=== PATIENT | male | born 1960 | race Hispanic/Latino ===

== ENCOUNTER → 2017-07-07 | Outpatient (CLI) | payer BC | END | disposition home or self-care (01) | LOC: YCFC.O 16:02 | PROVIDERS: ATTEND Nurse Practitioner Family | DX: R50.9 Fever, unspecified (principal) ==

== ENCOUNTER → 2017-07-07 | Outpatient (CLI) | payer BC ==
--- NOTE | 2017-07-07 17:07 | RAD ---
EXAM DESCRIPTION: Chest,2 Views CLINICAL HISTORY: 57 years Male, COUGH COMPARISON: None Available TECHNIQUE: PA/lateral FINDINGS: Cardiomegaly is evident. The lungs are clear. No pleural fluid is seen. Degenerative changes are seen in the thoracic spine. IMPRESSION: Cardiac megaly is observed without evidence of congestive heart failure. No infiltrate is detected. Electronically signed by: Juvenal Valles MD 07/07/2017 5:06 PM [facility]
== END | disposition home or self-care (01) ==
LOC: RAD 16:23
PROVIDERS: ATTEND Nurse Practitioner Family
DX: R05 Cough (principal)

== ENCOUNTER 2017-08-19 13:27 | Emergency (ER) | payer BC ==
[2017-08-19 14:01] VITALS: TEMP 98.8
[2017-08-19] MEDS ORDERED: ORPHENADRINE CITRATE 30 MG/ML AMP IM ONE (14:17)
[2017-08-19] MEDS ORDERED: KETOROLAC TROMETHAMINE INJ 60 MG/2 ML VIAL IM ONE (14:17)
[2017-08-19] MEDS ORDERED: HYDROcodone 10MG/APAP 325MG 1 EA TAB PO ONE (14:18)
--- NOTE | 2017-08-19 14:21 | ED.PDOC ---
History of Present Illness - General Chief Complaint: Back Pain or Injury Stated Complaint: low back/left leg pain Time Seen by Provider: 08/19/17 14:14 Source: patient, family Exam Limitations: no limitations - History of Present Illness Initial Comments: PT PRESENTS TO THE ED WITH COMPLAINT OF LUMBAR PAIN THAT RADIATES DOWN LEFT LEG FOR THE PAST 3 WEEKS AND WORSENING OVER THE PAST FEW DAYS. PT ALSO REPORTS COUGH AND STATES HE HAD CXR DONE 3 WEEKS AGO WHEN IT BEGAN, HOWEVER NOTHING WAS REPORTED BACK TO PATIENT. Timing/Duration: getting worse Quality/Severity: moderate, radiation Back Pain Location: lumbar spine Back Pain Radiation: upper legs Improving Factors: immobilization, medication Worsening Factors: movement Associated Symptoms: lower back pain Allergies/Adverse Reactions: Allergies NO KNOWN ALLERGY Allergy (Verified 07/01/15 15:24) Home Medications: Ambulatory Orders Acetaminophen W/ Codeine [Tylenol W/ CODEINE #3] 1 ea PO Q4HR PRN #24 08/19/17 Cyclobenzaprine HCl [Flexeril] 10 mg PO Q6HR PRN #20 tab 08/19/17 Ibuprofen 800 mg PO Q8HR PRN #30 tab 08/19/17 Review of Systems - Review of Systems Constitutional: Denies: chills, fever EENTM: Denies: nose congestion, throat pain Respiratory: States: see HPI, cough, short of breath Cardiology: Denies: chest pain, palpitations Gastrointestinal/Abdominal: Denies: nausea, vomiting Genitourinary: Denies: dysuria, frequency Musculoskeletal: Denies: joint pain, joint swelling Skin: Denies: dryness, lesions Neurological: Denies: headache, numbness, paresthesia Past Medical History (General) - Patient Medical History Hx Seizures: No Hx Stroke: No Hx Dementia: No Hx Asthma: No Hx of COPD: No Hx Cardiac Disorders: No Hx Congestive Heart Failure: No Hx Pacemaker: No Hx Hypertension: Yes Hx Thyroid Disease: No Hx Diabetes: No Hx Gastroesophageal Reflux: No Hx Renal Disease: No Surgical History: cholecystectomy - Vaccination History Hx Influenza Vaccination: No - Social History Hx Tobacco Use: No Family Medical History - Family History Mother Family History: No Known Physical Exam - Physical Exam General Appearance: Alert, Obvious distress, Well Developed, Well Groomed, Well Hydrated Eyes, Ears, Nose, Throat Exam: normal ENT inspection Neck Exam: normal inspection Cardiovascular/Respiratory: regular rate, rhythm, no M/R/G, normal breath sounds , no respiratory distress Gastrointestinal/Abdominal: non tender, soft Back Exam: other - DIFFUSE LUMBAR TENDERNESS, NEGATIVE STRAIGHT LEG RAISE BILATERALLY Extremity Exam: no evidence of injury Neurologic: alert, normal mood/affect, oriented x 3 Skin Exam: normal color, warm/dry Progress - Progress Progress: 08/19/17 15:40 PT REPORTS SIGNIFICANT IMPROVEMENT IN SYMPTOMS AFTER TORADOL, NORFLEX AND NORCO. XRAY FINDINGS DISCUSSED. - EKG/XRAY/CT XRAY: lumbar, degenerative dz - no acute findings Departure - Departure Clinical Impression: Sciatica, Degeneration of lumbosacral intervertebral disc, Cough Time of Disposition: 15:41 Disposition: Discharge to Home or Self Care Condition: Good Departure Forms: ED Discharge - Pt. Copy, Patient Portal Self Enrollment Instructions: DI for Back Pain With Sciatica Activity: increase activity as tolerated, no exercise, no lifting, walking as tolerated Referrals: Kindra Salvador, FITNESS LEADER [Primary Care Provider] - 1-5 Days Prescriptions: Acetaminophen W/ Codeine [Tylenol W/ CODEINE #3] 1 ea PO Q4HR PRN #24 PRN Reason: Pain Cyclobenzaprine HCl [Flexeril] 10 mg PO Q6HR PRN #20 tab PRN Reason: Muscle Spasms Ibuprofen 800 mg PO Q8HR PRN #30 tab PRN Reason: Pain Home Medications: Ambulatory Orders Acetaminophen W/ Codeine [Tylenol W/ CODEINE #3] 1 ea PO Q4HR PRN #24 08/19/17 Cyclobenzaprine HCl [Flexeril] 10 mg PO Q6HR PRN #20 tab 08/19/17 Ibuprofen 800 mg PO Q8HR PRN #30 tab 08/19/17 Additional Instructions: MAY RETURN TO WORK ON TUESDAY
--- NOTE | 2017-08-19 15:02 | RAD ---
EXAM DESCRIPTION: Lumbar Spine 3 Views CLINICAL HISTORY: BACK PAIN COMPARISON: None FINDINGS: 3 views of the lumbar spine. Lumbar lordosis is relatively well-maintained. Advanced facet arthritis L4-5 contributes to a grade 1 anterolisthesis measuring roughly 0.7 cm. No acute fracture the lumbar spine is demonstrated. Multilevel disc height loss with endplate sclerosis indicating multilevel disc disease. 5 lumbar type vertebral bodies are present Large marginal osteophyte formations can be seen with diffuse idiopathic skeletal hyperostosis. No SI joint pathology is seen to suggest a seronegative spondyloarthropathy. IMPRESSION: Degenerative grade 1 anterolisthesis L4 and L5. Multilevel disc disease is likely. No acute osseous pathology. Electronically signed by: Guilherme Morrison MD 08/19/2017 3:01 PM [facility]
--- NOTE | 2017-08-19 15:03 | RAD ---
EXAM DESCRIPTION: Chest,1 View CLINICAL HISTORY: COUGH COMPARISON: July 07, 2017. FINDINGS: Portable frontal view the thorax. No consolidation, effusion or pneumothorax is demonstrated. Heart size upper limits of normal. No acute osseous pathology. IMPRESSION: Negative portable chest. Electronically signed by: Guilherme Morrison MD 08/19/2017 3:02 PM [facility]
[2017-08-19 15:59] VITALS: BP 172/72; O2SAT 92
== END 2017-08-19 16:00 | disposition home or self-care (01) ==
LOC: ER 13:27
DX: M51.17 Intervertebral disc disorders with radiculopathy, lumbosacral region (principal); R05 Cough; I10 Essential (primary) hypertension
CPT/HCPCS: 71045; 72100; J1885; J2360

== ENCOUNTER → 2017-09-10 | Outpatient (CLI) | payer BC | LOC: LAB.O 09:04 | PROVIDERS: ATTEND Nurse Practitioner Family | DX: R06.02 Shortness of breath (principal); R93.8 Abnormal findings on diagnostic imaging of other specified body structures; I10 Essential (primary) hypertension; R73.01 Impaired fasting glucose; Z13.220 Encounter for screening for lipoid disorders ==

== ENCOUNTER 2017-12-25 07:35 | Observation (INO) | payer BC, OTHER ==
[2017-12-25] MEDS ORDERED: SODIUM CHLORIDE 0.9% 1000ML 1,000 ML IVS ONE (07:50)
[2017-12-25] MEDS ORDERED: PROMETHAZINE HCL INJ 25 MG in SODIUM CHLORIDE 0.9% 50ML 50 ML IVPB ONE (08:17)
[2017-12-25] MEDS ORDERED: ALUM & MAG HYDROX-SIMETHICONE 30 ML, LIDOCAINE VISCOUS 2% 15 ML PO ONE ×2 (08:18)
[2017-12-25] MEDS ORDERED: POTASSIUM CHLORIDE ELIXIR 20 MEQ/15 ML UD PO ONE (08:18)
[2017-12-25] MEDS ORDERED: LIDOCAINE HCL 2% (MOUTH-THROAT) 15 ML UD ONE (08:19)
[2017-12-25] MEDS ORDERED: ALUM & MAG HYDROX-SIMETHICONE 30 ML UD ONE (08:19)
[2017-12-25] MEDS ORDERED: PROMETHAZINE HCL INJ 25 MG/ML VIAL ONE (08:19)
[2017-12-25] MEDS ORDERED: SODIUM CHLORIDE 0.9% 50ML 50 ML ONE (08:20)
--- NOTE | 2017-12-25 08:25 | RAD ---
Acute abdominal series on 12/25/2017 CLINICAL INDICATION: Nausea and vomiting and diarrhea COMPARISON: Chest x-ray from 08/19/2017 FINDINGS: CHEST: Heart is borderline in size. Hilar and mediastinal contours are within normal limits. The lungs are clear. Pulmonary vascularity is within normal limits. ABDOMEN: There is no free air. Bowel gas pattern is nonspecific. No abnormal calcification or mass effect is noted. Degenerative changes are noted in the spine. IMPRESSION: 1. No acute cardiopulmonary disease. 2. Nonspecific abdomen. Electronically signed by: Carmine Whitt 12/25/2017 8:24 AM CDT
--- NOTE | 2017-12-25 09:01 | ED.PDOC ---
History of Present Illness - General Chief Complaint: GI Problem Stated Complaint: abdominal pain; n/v/d Time Seen by Provider: 12/25/17 07:49 Source: patient Exam Limitations: no limitations - History of Present Illness Initial Comments: the patient is a 57-year-old male presenting to the emergency room secondary to 3 days of nausea and vomiting and diarrhea. No blood in either. No history of any pancreatitis. The patient has had his gallbladder taken out years ago. No fever. No history of any diabetes. No history of any chronic hepatitis. No history of any chronic renal failure. He does take Coreg along with lisinopril and hydrochlorothiazide for hypertension. Of note the patient is significantly orthostatic here, in fact he is too dizzy to sit up or stand up for tilt vital signs initially. Initial systolic blood pressures when supine are right around 100. he has had a mild sore throat.he and his deny any recent antibiotic use. His is used to interpret, though the patient does speak some Malagasy and I do speak some Cameroonian. Severity: moderate Improving Factors: nothing Worsening Factors: movement Associated Symptoms: headaches, loss of appetite, malaise, weakness Allergies/Adverse Reactions: Allergies NO KNOWN ALLERGY Allergy (Verified 07/01/15 15:24) Home Medications: Ambulatory Orders Ibuprofen 800 mg PO Q8HR PRN #30 tab 08/19/17 Carvedilol [Carvedilol] 25 mg BEDTIME 12/25/17 Lisinopril & Hydrochlorothiazi [Lisinopril/Hctz 20-25 mg] 1 tab PO BEDTIME 12/25 Omeprazole [Prilosec Cap] 20 mg PO BEDTIME 12/25/17 Review of Systems - Review of Systems Constitutional: States: malaise, weakness EENTM: States: throat pain Respiratory: States: no symptoms reported Cardiology: States: no symptoms reported Gastrointestinal/Abdominal: States: abdominal pain, diarrhea, nausea, vomiting Genitourinary: States: no symptoms reported Musculoskeletal: States: other - mild generalized body aches Skin: States: no symptoms reported Neurological: States: no symptoms reported Endocrine: States: no symptoms reported Hematologic/Lymphatic: States: no symptoms reported All other Systems: No Change from Baseline Past Medical History (General) - Patient Medical History Hx Seizures: No Hx Stroke: No Hx Dementia: No Hx Asthma: No Hx of COPD: No Hx Cardiac Disorders: No Hx Congestive Heart Failure: No Hx Pacemaker: No Hx Hypertension: Yes Hx Thyroid Disease: No Hx Diabetes: No Hx Gastroesophageal Reflux: No Hx Renal Disease: No - Vaccination History Hx Influenza Vaccination: No - Social History Hx Tobacco Use: No Family Medical History - Family History Mother Family History: No Known Physical Exam - Physical Exam General Appearance: Alert, Ill Appearing Eye Exam: bilateral normal Ears, Nose, Throat: hearing grossly normal, pharyngeal erythema Neck: full range of motion, supple Respiratory: lungs clear, normal breath sounds, no respiratory distress, no accessory muscle use Cardiovascular/Chest: normal peripheral pulses, no edema, bradycardia - on Coreg Peripheral Pulses: radial,right: 2+, radial,left: 2+, dorsalis pedis,right: 2+, dorsalis pedis,left: 2+ Gastrointestinal/Abdominal: soft, other - periumbilical discomfort palpation but no palpable mass and no rebound or peritoneal signs Rectal Exam: deferred Back Exam: normal inspection, no CVA tenderness, no vertebral tenderness Extremity: normal range of motion, non-tender, normal inspection, no pedal edema , normal capillary refill Neurologic: campaign marketing manager II-XII nml as tested, alert, oriented x 3 DTR: 2+: Patellar, left, Patellar, right Skin Exam: normal color Comments: Vital Signs - 24 hr 12/25/17 12/25/17 07:45 08:35 Temperature 96.7 F L Pulse Rate [ 51 L 53 L left brachial] Respiratory 16 16 Rate Blood Pressure 101/50 103/53 [left brachial] O2 Sat by Pulse 97 97 Oximetry again tilt vital signs were not taken as the patient is too dizzy to even really sit up. he does take Coreg additionally Progress - Progress Progress: 12/25/17 09:05 the patient is a 57-year-old male presenting to the emergency room secondary to nausea and vomiting and diarrhea of 3 days' duration. While this is most likely due to a viral gastroenteritis other possible sources do exist. If diarrhea persists, then stool studies including C. difficile may be warranted. No antibiotics are warranted at this time. He does have significant dehydration with very significant clinical orthostasis and acute renal failure. He is receiving his first liter of IV fluids currently. A strep test is being performed to make sure he does not have strep throat which could of course give a post streptococcal glomerulonephritis contributing to the renal failure. Additionally he does have some resultant hypokalemia, likely from the nausea and vomiting and diarrhea but also contributed to by the hydrochlorothiazide in his blood pressure pills. He is receiving his first dose of oral potassium supplementation and this will need to of course be followed. His Coreg needs to be held at this time and the hydrochlorothiazide discontinued. He also should likely have his lisinopril discontinued at least until he is better hydrated and not symptomatically orthostatic. Urinalysis is still pending along with a strep throat test. Admitted for care for above issues. Anticipate a 3-5 day hospital stay for correction of renal complications. - Results/Orders Results/Orders: 12/25/17 07:50 UA [URINALYSIS] Stat 12/25/17 09:01 GROUP A STREP SCREEN, RAPID Stat Laboratory Results - last 24 hr 12/25/17 12/25/17 12/25/17 08:03 08:03 08:03 WBC 7.1 RBC 5.13 Hgb 15.2 Hct 43.6 MCV 85.0 MCH 29.7 MCHC 34.9 RDW 13.4 Plt Count 136 MPV 9.7 Absolute Neuts (auto) 4.20 Absolute Lymphs (auto) 1.80 Absolute Monos (auto) 0.90 H Absolute Eos (auto) 0.20 Absolute Basos (auto) 0.00 Neutrophils % 59.2 Lymphocytes % 25.3 Monocytes % 12.6 H Eosinophils % 2.2 Basophils % 0.7 Sodium 132 L Potassium 2.9 L Chloride 98 L Carbon Dioxide 23 Anion Gap 13.9 BUN 54 H Creatinine 3.69 H BUN/Creatinine Ratio 14.6 Random Glucose 168 H Serum Osmolality 283.1 Lactic Acid 0.9 Calcium 8.3 L Magnesium 2.4 Total Bilirubin 1.1 H AST 68 H ALT 65 H Alkaline Phosphatase 95 Creatine Kinase 150 CK-MB (CK-2) 3.3 CK-MB (CK-2) % Not Reportable Troponin I 0.03 Serum Total Protein 7.7 Albumin 4.4 Globulin 3.3 Albumin/Globulin Ratio 1.3 Amylase 57 Lipase 33 urinalysis and rapid strep were still pending. Acute abdominal series fails to show any definitive acute pathology. Departure - Departure Clinical Impression: Hypokalemia, Orthostasis, Dehydration, Gastroenteritis and colitis, viral Acute renal failure Qualifiers: Acute renal failure type: unspecified Qualified Code(s): N17.9 - Acute kidney failure, unspecified Disposition: Admit Patient Referrals: Kindra Salvador, [employer] SP[employer]NER [Primary Care Provider] - 1-2 Weeks Home Medications: Ambulatory Orders Ibuprofen 800 mg PO Q8HR PRN #30 tab 08/19/17 Carvedilol [Carvedilol] 25 mg BEDTIME 12/25/17 Lisinopril & Hydrochlorothiazi [Lisinopril/Hctz 20-25 mg] 1 tab PO BEDTIME 12/25 Omeprazole [Prilosec Cap] 20 mg PO BEDTIME 12/25/17 Decision To Admit - Decistion To Admit Decision to Admit Reason: Medical Nature Decision to Admit Date: 12/25/17 Decision to Admit Time: 09:11
--- NOTE | 2017-12-25 09:21 | HP ---
SUPERVISING PHYSICIAN: Dave Brunson MD CHIEF COMPLAINT: Nausea, vomiting, diarrhea. HISTORY OF PRESENT ILLNESS: This is a 57 year-old male pt who came into the Emergency Room secondary to a 3-day history of nausea and vomiting with development of diarrhea as well. He states that basically he went to work on Tuesday. He does not usually eat breakfast so throughout the day he developed the nausea and vomiting. He was working outside and got really, really hot on Tuesday. He came home basically drenched in sweat his stated. Since that time he had the nausea and vomiting. The vomiting basically ended yesterday but then he developed some diarrhea. He has not felt very well. Therefore, he came to the Emergency Room this morning. In the Emergency Room his workup included abdominal film which was basically negative. His chemiatry showed an electrolytes imbalance with hyponatremia at 132, hypokalemia at 2.9 and elevated BUN and creatinine of 54 and 3.69 respectively. He did have some transaminitis, AST of 68 and ALT of 65 and his bilirubin was 1.1. His CBC was unremarkable but due to these findings he was referred for admission. At the time of examination, the patient was alert and oriented. He did not speak very good Swedish but his is at the bedside and interpreting. He did not really have a whole tenderness to palpation at this time. His abdomen is soft and he has positive bowel sounds. PAST MEDICAL HISTORY: 1. Hypertension. 2. Heart murmur. 3. Gastroesophageal reflux disease. PAST SURGICAL HISTORY: 1. Open cholecystectomy. CURRENT MEDICATIONS: 1. Carvedilol. 2. Ibuprofen. 3. Lisinopril with HCTZ. 4. Omeprazole. ALLERGIES: NO KNOWN DRUG ALLERGIES. FAMILY HISTORY: Reviewed and noncontributory to the current illness. SOCIAL HISTORY: The patient does not drink alcohol, no illicit drugs and a nonsmoker. He is . He works outdoors most of the time. REVIEW OF SYSTEMS: GENERAL: No fever or chills. No recent weight loss or weight gain but positive for malaise. HEENT: No distal aspects, vision changes, ear pain, nasal congestion or throat pain. RESPIRATORY: No cough, hemoptysis or pleuritic chest pain. CARDIOVASCULAR: No chest pain, palpitations or peripheral edema. GI: Positive for nausea and vomiting, diarrhea, no constipation. Some mild abdominal discomfort. : No dysuria, frequency or flank pain. HEMATOLOGIC: No easy bruising or transfusion reaction. ENDOCRINE: No polydipsia, polyuria or polyphagia. No heat or cold intolerance. MUSCULOSKELETAL: Positive for some back pain but no muscle cramps or joint swelling. NEUROLOGIC: No syncope, no paresthesias, no seizures. INTEGUMENT: No rashes, lesions or wounds. PHYSICAL EXAMINATION: VITAL SIGNS: Blood pressure 102/46, heart rate 50, respiratory rate 14, temperature 98.0. Oxygen saturation 95%. GENERAL: Mr. Batista is a 57 year-old male patient in no acute distress at this time. HEENT: Head normocephalic and atraumatic. Eyes: Pupils are equal and reactive. Nose: no drainage but rather dry mucosa. NECK: Supple, midline trachea, no jugular venous distention. CHEST: Symmetrical with equal rise and fall of the chest with inspiration and expiration. Lung sounds are clear to auscultation bilaterally. CARDIOVASCULAR: Regular rate and rhythm which is bradycardic. Normal S1-S2 but he does have a systolic murmur best heard on the right at the second intercostal space. ABDOMEN: Soft, positive bowel sounds. No tenderness to palpation. No organomegaly. : Exam deferred. EXTREMITIES: Lower extremities with no edema, 2+ pulse, capillary refill less than 2 second. NEUROLOGIC: The patient is alert and oriented, moves all extremities. Extraocular movements are intact. LABORATORY: As discussed in the history of present illness. ASSESSMENT: 1. Acute renal failure. electrolyte imbalance. 2. Possible gastroenteritis. 3. Likely heat exhaustion. 4. History of hypertension with a marginal blood pressure currently. 5. History of a cardiac murmur. PLAN: At this time, the patient will be aggressively resuscitated. I am going to utilize some lactated ringers as he already got normal saline in the Emergency Room along with a potassium tablet. I will put him on some clear liquids for now and give him Zofran p.r.n., however, at this point, he is not nauseated. I fell like given his lab results with a normal CBC, that there is a possibility this is a viral gastroenteritis but more likely this is the result of a severe heat exhaustion for which he did not recover and was inadequately taking p.o. fluids at home. Will hold all his home medications for now and probably discontinue his HCTZ once he leaves here and he can followup with Dariela Salvador NP, his primary care provider. I am going to utilize DVT GI ulcer prophylaxis here as well. I am going to recheck his chemistry about 1800 today and adjust his IV fluids as needed. #[id number] [facility]
[2017-12-25] MEDS ORDERED: SODIUM CHLORIDE 0.9% (FLUSH) 10 ML SYG IV PRN (10:34)
[2017-12-25] MEDS ORDERED: ONDANSETRON INJ 4 MG/2 ML VIAL IV PRN (10:34)
[2017-12-25] MEDS ORDERED: PANTOPRAZOLE SODIUM IV 40 MG VIAL IV ONE (10:52)
[2017-12-25] MEDS ORDERED: IV SET AND CAP CHANGE INJ INJ SCH (11:00)
[2017-12-25] MEDS: LACTATED RINGERS 1,000 ML IVS PRN ×2 (11:15→18:36)
[2017-12-25] MEDS: ENOXAPARIN SODIUM 30 MG/0.3 ML SYG SUBCU SCH (11:50)
[2017-12-25] MEDS ORDERED: LACTATED RINGERS 1,000 ML IVS ONE (16:50)
[2017-12-26] MEDS: LACTATED RINGERS 1,000 ML IVS PRN ×2 (00:52→07:58)
[2017-12-26] MEDS ORDERED: POTASSIUM CHLORIDE 20 MEQ TAB PO ONE (08:29)
[2017-12-26] MEDS: ENOXAPARIN SODIUM 30 MG/0.3 ML SYG SUBCU SCH (09:20)
[2017-12-26] MEDS ORDERED: CYCLOBENZAPRINE HCL 10 MG TAB PO PRN (09:36)
[2017-12-26] MEDS ORDERED: CARVEDILOL 12.5 MG TAB PO SCH (09:45)
[2017-12-26] MEDS ORDERED: LISINOPRIL 10 MG TAB PO SCH (10:00)
[2017-12-26] MEDS ORDERED: CARVEDILOL 12.5 MG TAB ONE (10:02)
[2017-12-26 15:08] VITALS: BP 134/54; TEMP 98.1; O2SAT 97
--- NOTE | 2017-12-26 15:31 | DS ---
SUPERVISING PHYSICIAN: Dave Brunson MD ADMISSION DIAGNOSIS: 1. Acute renal failure. 2. Electrolyte imbalance. 3. Possible gastroenteritis. 4. Likely heat exhaustion. 5. History of hypertension. 6. History of a cardiac murmur. DISCHARGE DIAGNOSIS: 1. Acute renal failure. 2. Electrolyte imbalance. 3. Possible gastroenteritis. 4. Likely heat exhaustion. 5. History of hypertension. 6. History of a cardiac murmur. HISTORY OF PRESENT ILLNESS: This is a 57 year-old male patient who came into the Emergency Room secondary to a 3-day history of nausea and vomiting with development of diarrhea as well. He states that basically he went to work on Tuesday. He does not usually eat breakfast so throughout the day he developed the nausea and vomiting. He was working outside and got really, really hot on Tuesday. He came home basically drenched in sweat his stated. Since that time he had the nausea and vomiting. The vomiting basically ended yesterday but then he developed some diarrhea. He has not felt very well. Therefore, he came to the Emergency Room this morning. In the Emergency Room his workup included abdominal film which was basically negative. His chemistry showed an electrolytes imbalance with hyponatremia at 132, hypokalemia at 2.9 and elevated BUN and creatinine of 54 and 3.69 respectively. He did have some transaminitis, AST of 68 and ALT of 65 and his bilirubin was 1.1. His CBC was unremarkable but due to these findings he was referred for admission. At the time of examination, the patient was alert and oriented. He did not speak very good Bel[place]ian but his is at the bedside and interpreting. He did not really have a whole lot tenderness to palpation at this time. His abdomen is soft and he has positive bowel sounds. His repeat chemistry at 1800 yesterday showed an improvement in his BUN and creatinine and once again this morning, it showed a normalization of his creatinine with still elevated BUN. However, we advanced his diet and he tolerated that without any difficulties. We finished a bag of lactated ringers and gave him potassium supplementation. This afternoon, he wishes to go home, so we will discharge home in stable condition. He has been instructed to not take lisinopril with HCTZ. I have written for lisinopril 20 mg to be taken daily. He can followup with Kindra Salvador, Nurse Practitioner. I have instructed him also to not work out in the heat for the rest of this week. He can discuss with her when to return to work. Once again , I do feel like this is due to heat exhaustion and not a viral gastroenteritis. #[id number] [facility]
[2017-12-26] MEDS ORDERED: OMEPRAZOLE CAP 20 MG CAP PO SCH (21:00)
== END 2017-12-26 16:15 | disposition home or self-care (01) ==
LOC: ER 07:35 → OBSVTOIN 09:19 → UNDOADMOB 09:19 → INTOOBSV 09:19 → MS 09:19
PROVIDERS: ADMIT Nurse Practitioner; ATTEND Nurse Practitioner
DX: N17.9 Acute kidney failure, unspecified (principal); E87.8 Other disorders of electrolyte and fluid balance, not elsewhere classified; E87.1 Hypo-osmolality and hyponatremia; E87.6 Hypokalemia; E86.0 Dehydration; R79.89 Other specified abnormal findings of blood chemistry; R11.2 Nausea with vomiting, unspecified; R19.7 Diarrhea, unspecified; I10 Essential (primary) hypertension; R01.1 Cardiac murmur, unspecified; K21.9 Gastro-esophageal reflux disease without esophagitis; Z79.899 Other long term (current) drug therapy; Z90.49 Acquired absence of other specified parts of digestive tract
CPT/HCPCS: 96361 ×2; 96372 ×2; 96375; J1650 ×2; J2550; J7030; A4216; J7120 ×5; 80048; 82553; 80053 ×2; 36415 ×2; 82150; 81001; 85025 ×2; 82550; 83690; 83735 ×2; 84484; 83605; 74019; 99285; 93005; 96365

== ENCOUNTER 2018-05-05 18:42 | Emergency (ER) | payer BC, OTHER ==
[2018-05-05] MEDS ORDERED: SODIUM CHLORIDE 0.9% 1000ML 1,000 ML IVS ONE (18:45)
[2018-05-05] MEDS ORDERED: ASPIRIN TABLET 325 MG TAB PO ONE (18:48)
[2018-05-05] MEDS ORDERED: NITROGLYCERIN 0.4 MG 25 EA TAB SL ONE (18:48)
[2018-05-05] MEDS ORDERED: SODIUM CHLORIDE 0.9% (FLUSH) 10 ML SYG IV PRN (18:48)
[2018-05-05] MEDS ORDERED: ONDANSETRON INJ 4 MG/2 ML VIAL IV ONE (18:48)
[2018-05-05] MEDS ORDERED: MIDAZOLAM INJ 5 MG/5 ML VIAL ONE (18:52)
--- NOTE | 2018-05-05 19:10 | ED.PDOC ---
History of Present Illness - General Chief Complaint: Cardiac Respiratory Arrest Stated Complaint: unresponsive Time Seen by Provider: 05/05/18 19:03 Source: RN notes reviewed, Vital Signs reviewed, family Exam Limitations: clinical condition, other - unresponsive - History of Present Illness Initial Comments: Brandon Batista 58 y/o male brought by POV after he passed out at his sons house unresponsive,and initial exam felt no pulse ,no respiratory effort,frothing around his mouth and was then suctione,chest compression started ,bagged ,IO inserted,as well as placing monitor leads .He was given a dose Epinephrine 1 mg. iv and et tube placed. Timing/Duration: 1/2 hour Severity: severe Prior Chest Pain/Cardiac Workup: no prior chest pain Allergies/Adverse Reactions: Allergies NO KNOWN ALLERGY Allergy (Verified 07/01/15 15:24) Home Medications: Ambulatory Orders Ibuprofen 800 mg PO Q8HR PRN #30 tab 08/19/17 Carvedilol 25 mg BID 12/25/17 Cyclobenzaprine HCl [Flexeril] 10 mg PO BEDTIME PRN 12/25/17 Omeprazole [Prilosec Cap] 20 mg PO BEDTIME 12/25/17 Lisinopril 20 mg PO DAILY 30 Days #30 tab 12/26/17 Lisinopril [Prinivil] 20 mg PO DAILY tab 12/26/17 Review of Systems - Review of Systems Unable to Obtain Due To: condition, other - unresponsive Past Medical History (General) - Patient Medical History Hx Seizures: No Hx Stroke: No Hx Dementia: No Hx Asthma: No Hx of COPD: No Hx Cardiac Disorders: No Hx Congestive Heart Failure: No Hx Pacemaker: No Hx Hypertension: Yes Hx Thyroid Disease: No Hx Diabetes: No Hx Gastroesophageal Reflux: No Hx Renal Disease: No Hx MRSA: No - Vaccination History Hx Influenza Vaccination: No - Social History Hx Tobacco Use: No Hx Alcohol Use: No Hx Substance Use: No Hx Physical Abuse: No Hx Emotional Abuse: No Family Medical History - Family History Mother Family History: No Known Living Status: Still Living Hx Family Asthma: No Hx Family Congestive Heart Failure: No Hx Family Hypertension: No Hx Family Stroke: No Hx Cardiac Disease: No Hx Family Diabetes: No Hx Family Cancer: No Physical Exam - Physical Exam General Appearance: Other - unresponsive Eyes, Ears, Nose, Throat Exam: other - slightly reactive pupil,frothy saliva coming out from mouth Neck: normal inspection Respiratory: rales, other - not br Cardiovascular/Chest: bradycardia Peripheral Pulses: radial,right: 0, radial,left: 0 Gastrointestinal/Abdominal: soft, no pulsatile mass Extremity: no pedal edema Neurologic: other - unresponsive Skin Exam: normal color, warm/dry Progress - EKG/XRAY/CT EKG: Sinus, no ST T wave changes Comments: HR-97 Procedures - Intubation Time of Intubation: 19:05 Intubation Method: orotracheal Tube Size (cm): 7.5 Breath Sounds after Intubation: equal Intubation Complications: no complications Post Intubation Xray: Yes Departure - Departure Clinical Impression: Cardiac arrest with successful resuscitation, Unresponsive Time of Disposition: 19:15 Disposition: Transfer to Hospital Condition: Serious Departure Forms: ED Discharge - Pt. Copy, Patient Portal Self Enrollment Referrals: Kindra Salvador, RN INTERNATIONAL [Primary Care Provider] - 1-2 Weeks Home Medications: Ambulatory Orders Ibuprofen 800 mg PO Q8HR PRN #30 tab 08/19/17 Carvedilol 25 mg BID 12/25/17 Cyclobenzaprine HCl [Flexeril] 10 mg PO BEDTIME PRN 12/25/17 Omeprazole [Prilosec Cap] 20 mg PO BEDTIME 12/25/17 Lisinopril 20 mg PO DAILY 30 Days #30 tab 12/26/17 Lisinopril [Prinivil] 20 mg PO DAILY tab 12/26/17 Transfer to Outside Facility - Transfer Information Accepting Provider:: Dr. Ravin Noguera Accepting Facility: [facility] Reason for Transfer: ICU
--- NOTE | 2018-05-05 19:17 | RAD ---
EXAM: Chest,1 View CLINICAL INDICATION: 58-year-old male with cardiac arrest. TECHNIQUE: Single view, AP portable chest was obtained. COMPARISON: 08/19/2017. FINDINGS: Stable enlarged cardiac and mediastinal silhouette. Cardiomegaly with tortuous thoracic aorta. Low lung volumes with hemidiaphragms elevation of the RIGHT. Diffuse interstitial and airspace opacification compatible with edema. No gross pneumothoraces or large pleural effusion. Endotracheal tube terminates approximately 2.3 cm above the level of the fawn. Feeding tube is identified coiled within a distended stomach. The tip appears to course of retrograde and is not visualized beyond the level of the gastroesophageal junction. Repositioning is recommended. The visualized bones are within normal limits. IMPRESSION: 1. Cardiomegaly and diffuse interstitial and airspace opacification concerning edema. 2. Atypical positioning of the feeding tube as detailed above. Repositioning is recommended. Electronically signed by: Crista Titus MD 05/05/2018 7:16 PM TYPING BOOKKEEPER
[2018-05-05 20:05] VITALS: BP 153/84; TEMP 99.2; O2SAT 90
[2018-05-05] MEDS ORDERED: MIDAZOLAM INJ 5 MG/5 ML VIAL IV ONE (20:46)
[2018-05-05] MEDS ORDERED: VECURONIUM BROMIDE 10 MG VIAL IV ONE (20:47)
[2018-05-05] MEDS ORDERED: EPINEPHrine INJ 0.1 MG/ML 10 ML SYG IV ONE (20:47)
[2018-05-05] MEDS ORDERED: NITROGLYCERIN/D5W IV 50,000 MCG in PREMIX BOTTLE 1 BOTTLE IVS SCH (21:00)
== END 2018-05-05 20:15 | disposition short-term general hospital (02) ==
LOC: ER 18:42
DX: I46.9 Cardiac arrest, cause unspecified (principal); R41.82 Altered mental status, unspecified; I10 Essential (primary) hypertension
CPT/HCPCS: 36415; 36600; 71045; 80048; 80076; 82550; 82553; 82803; 82805; 83735; 83880; 84484; 85025; 85610; 85730; 92950; 93005; 94002; 94770; J2250; J7030

== ENCOUNTER 2018-07-03 19:32 | Emergency (ER) | payer BC ==
[2018-07-03] MEDS ORDERED: cefTRIAXone SODIUM 1 GM VIAL IM ONE (19:53)
[2018-07-03] MEDS ORDERED: predniSONE 20 MG TAB PO ONE (19:53)
[2018-07-03] MEDS ORDERED: AMOXICILLIN & POT CLAVULANATE 875 MG TAB PO ONE (19:53)
[2018-07-03] MEDS ORDERED: HYDROcodone 5MG/APAP 325MG 1 EA TAB PO ONE (19:54)
[2018-07-03] MEDS ORDERED: cloNIDine HCL 0.1 MG TAB PO ONE (20:03)
--- NOTE | 2018-07-03 20:06 | ED.PDOC ---
History of Present Illness - General Chief Complaint: Dental/Mouth Stated Complaint: upper mouth/.tooth pain Time Seen by Provider: 07/03/18 19:53 Source: patient Exam Limitations: no limitations - History of Present Illness Initial Comments: The patient is a 58-year-old male presenting to the emergency room secondary to infected dental caries and swelling of his upper lip. The swelling of the lip started about 5 or 6 hours ago with pain extending up to the base of his nose. He has multiple dental caries and all of his incisors of the maxilla. He has been hurting significantly all day long. His blood pressure is significantly elevated here but he is otherwise asymptomatic from it. No chest pain or shortness of breath. Timing/Duration: unsure Severity: moderate Improving Factors: nothing Worsening Factors: nothing Associated Symptoms: denies symptoms Allergies/Adverse Reactions: Allergies NO KNOWN ALLERGY Allergy (Verified 07/01/15 15:24) Home Medications: Ambulatory Orders Ibuprofen 800 mg PO Q8HR PRN #30 tab 08/19/17 Carvedilol 25 mg BID 12/25/17 Cyclobenzaprine HCl [Flexeril] 10 mg PO BEDTIME PRN 12/25/17 Omeprazole [Prilosec Cap] 20 mg PO BEDTIME 12/25/17 Lisinopril 20 mg PO DAILY 30 Days #30 tab 12/26/17 Lisinopril [Prinivil] 20 mg PO DAILY tab 12/26/17 Amlodipine Besylate 5 mg PO DAILY #20 tab 07/03/18 Amoxicillin & Pot Clavulanate [Augmentin Tab] 875 mg PO BID #14 tab 07/03/18 Tramadol HCl 50 mg PO Q8HR PRN #20 tab 07/03/18 Review of Systems - Review of Systems Constitutional: States: no symptoms reported EENTM: States: see HPI Respiratory: States: no symptoms reported Cardiology: States: no symptoms reported Gastrointestinal/Abdominal: States: no symptoms reported Genitourinary: States: no symptoms reported Musculoskeletal: States: no symptoms reported Skin: States: no symptoms reported Neurological: States: no symptoms reported Endocrine: States: no symptoms reported Hematologic/Lymphatic: States: no symptoms reported All other Systems: No Change from Baseline Past Medical History (General) - Patient Medical History Hx Seizures: No Hx Stroke: No Hx Dementia: No Hx Asthma: No Hx of COPD: No Hx Cardiac Disorders: Yes Hx Congestive Heart Failure: No Hx Pacemaker: No Hx Hypertension: Yes Hx Thyroid Disease: No Hx Diabetes: No Hx Gastroesophageal Reflux: No Hx Renal Disease: No Hx MRSA: No Surgical History: cholecystectomy - Vaccination History Hx Influenza Vaccination: Yes - Social History Hx Tobacco Use: No Hx Alcohol Use: No Hx Substance Use: No Hx Physical Abuse: No Hx Emotional Abuse: No Family Medical History - Family History Mother Family History: No Known Living Status: Still Living Hx Family Asthma: No Hx Family Congestive Heart Failure: No Hx Family Hypertension: No Hx Family Stroke: No Hx Cardiac Disease: No Hx Family Diabetes: No Hx Family Cancer: No Physical Exam - Physical Exam General Appearance: Alert, Comfortable, No apparent distress Eye Exam: bilateral normal Ears, Nose, Throat: hearing grossly normal, normal pharynx - very poor dentition. Swelling of the upper lip. No swelling of the posterior oropharynx or tongue at this time. 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 He is being dosed with Augmentin and Rocephin here for that. Additionally he is receiving a dose of hydrocodone and prednisone to help reduce the pain. This should also help reduce swelling. At this point in time I believe the swelling is due to infection not due to any form of allergic reaction. His blood pressure is significantly elevated but he is asymptomatic from it. He is receiving a dose of clonidine for that. In talking with his it appears his blood pressures have been moderately elevated as an outpatient over the last couple of weeks anyway. He may get benefit from an increase in his blood pressure medications. 07/03/18 21:21 blood pressures are doing better after a dose of clonidine. Given his recent cardiac issues I'm going to write the patient for amlodipine 5 mg daily. I do want him to record his blood pressures 2-3 times daily when he is relaxed and take these to his primary care doctor within the next week. Departure - Departure Clinical Impression: Dental caries, Hypertensive urgency Disposition: Discharge to Home or Self Care Condition: Fair Departure Forms: ED Discharge - Pt. Copy, Patient Portal Self Enrollment Instructions: DI for Mouth Pain Diet: diabetic diet Activity: increase activity as tolerated Referrals: Kindra Salvador NP [Primary Care Provider] - 1-5 Days Prescriptions: Tramadol HCl 50 mg PO Q8HR PRN #20 tab PRN Reason: Moderate Pain Amlodipine Besylate 5 mg PO DAILY #20 tab Amoxicillin & Pot Clavulanate [Augmentin Tab] 875 mg PO BID #14 tab Home Medications: Ambulatory Orders Ibuprofen 800 mg PO Q8HR PRN #30 tab 08/19/17 Carvedilol 25 mg BID 12/25/17 Cyclobenzaprine HCl [Flexeril] 10 mg PO BEDTIME PRN 12/25/17 Omeprazole [Prilosec Cap] 20 mg PO BEDTIME 12/25/17 Lisinopril 20 mg PO DAILY 30 Days #30 tab 12/26/17 Lisinopril [Prinivil] 20 mg PO DAILY tab 12/26/17 Amlodipine Besylate 5 mg PO DAILY #20 tab 07/03/18 Amoxicillin & Pot Clavulanate [Augmentin Tab] 875 mg PO BID #14 tab 07/03/18 Tramadol HCl 50 mg PO Q8HR PRN #20 tab 07/03/18 Additional Instructions: The patient presents with infected dental caries and an associated swollen upper lip along with a hypertensive urgency. The patient is being started on Augmentin and has already received a dose of this along with a dose of Rocephin IM. Additionally he does have markedly elevated blood pressures here. This is at least partially due to pain however given his recent cardiac issues, the patient is going to be started on amlodipine 5 mg daily. I do want him to record his blood pressures 2-3 times daily when at rest and take these to his primary care doctor. He certainly needs to achieve better blood pressures than he has been recently in order to protect his cardiac function long-term. He is to continue his other blood pressure medications. These can certainly be adjusted by his primary care doctor and coding spec as necessary. tramadol also be written to help control pain. ER warnings were given. Follow-up with primary care doctor in 2-3 days. Follow up with dentist as well.
[2018-07-03] MEDS ORDERED: LIDOCAINE 1% 2 ML VIAL INJ ONE (20:11)
[2018-07-03 21:39] VITALS: BP 138/62; TEMP 98.2; O2SAT 97
== END 2018-07-03 21:37 | disposition home or self-care (01) ==
LOC: ER 19:32
DX: K02.9 Dental caries, unspecified (principal); I16.0 Hypertensive urgency; I51.9 Heart disease, unspecified; Z79.899 Other long term (current) drug therapy
CPT/HCPCS: J0696; J7512

== ENCOUNTER → 2018-09-14 | Outpatient (CLI) | payer BC ==
--- NOTE | 2018-09-16 11:03 | RAD ---
EXAM DESCRIPTION: Hip,Right 2 Views CLINICAL HISTORY: 58 years Male, PAIN IN RIGHT HIP COMPARISON: None available. FINDINGS: The visualized bones are well-mineralized.No acute fracture or dislocation. Mild degenerative changes are noted. The soft tissues appear grossly unremarkable. IMPRESSION: Mild right hip osteoarthritis. Electronically signed by: Jona Saldivar MD 09/16/2018 11:00 AM CDT
== END ==
LOC: RAD 16:21
PROVIDERS: ATTEND Nurse Practitioner Family
DX: M16.11 Unilateral primary osteoarthritis, right hip (principal)

== ENCOUNTER → 2018-10-02 | Outpatient (CLI) | payer BC ==
--- NOTE | 2018-10-02 08:53 | RAD ---
Single frontal radiograph pelvis Indication: M25.551 Comparison: None. Impression: Mild bilateral hip joint space narrowing with minimal acetabular roof osteophyte formation. Ossification left hip labrum. No acute fracture. Minimal pubic symphysis osteoarthritis. Electronically signed by: Jose Alberto Hannah MD 10/02/2018 8:49 AM CDT
== END ==
LOC: RAD 08:15
PROVIDERS: ATTEND Orthopaedic Surgery
DX: M24.859 Other specific joint derangements of unspecified hip, not elsewhere classified (principal); M25.751 Osteophyte, right hip; M25.752 Osteophyte, left hip; M61.58 Other ossification of muscle, other site

== ENCOUNTER 2018-10-03 05:49 | Day surgery (SDC) | payer BC ==
[2018-10-03] MEDS ORDERED: PROPOFOL 200 MG/20 ML VIAL IV ONE (07:00)
[2018-10-03] MEDS ORDERED: LIDOCAINE 1% 10 ML VIAL INJ ONE (07:00)
[2018-10-03] MEDS ORDERED: LACTATED RINGERS 1,000 ML ONE (07:46)
[2018-10-03] MEDS ORDERED: LIDOCAINE 1% W/ EPINEPHRINE 20 ML VIAL INJ ONE (08:17)
[2018-10-03] MEDS ORDERED: methylPREDNISolone ACETATE 80 MG/ML VIAL ONE (08:17)
[2018-10-03] MEDS ORDERED: BUPIVACAINE 0.25% INJ 30 ML VIAL INJ ONE (08:17)
[2018-10-03] MEDS ORDERED: LACTATED RINGERS 1,000 ML BAG IV ONE (08:35)
[2018-10-03 11:05] VITALS: BP 129/63; TEMP 97.5; O2SAT 97
--- NOTE | 2018-10-04 08:16 | OP ---
DATE OF PROCEDURE: 10/03/18 PREOPERATIVE DIAGNOSIS: 1. Right hip pain. POSTOPERATIVE DIAGNOSIS: 1. Right hip pain. PROCEDURE: 1. Injection of right hip. SURGEON: Wilfrid Dewitt MD. SLUDGE FILTRATION ATTENDANT: Kyle Slade CST, SA-C. ANESTHESIA: Conscious sedation. COMPLICATIONS: None. FINDINGS: Minor arthritis, otherwise unremarkable. INDICATION: Mr. Batista has a history of pain in the hip that he localizes to the hip joint. It occurs during activities and during exam, it occurred with manipulation of the hip and with ambulation. Because of the pain, we decided to attempt an intraarticular injection. After discussing the risks, benefits and alternatives to that, the patient has given informed consent for that. PROCEDURE: The patient was brought to the Operating Room and placed in supine position. Conscious sedation was administered and the leg was flexed, abducted and externally rotated. The groin was prepped and fluoroscopic imaging was used to confirm needle placement into the hip joint through a medial portal. Once placement had been confirmed, a combination of lidocaine and Depo-Medrol were injected into the joint. After injection, the needle was withdrawn. Pressure was held on the injection site. A sterile band-aid was placed. The patient was then taken back to the Day Surgery Unit. POSTOPERATIVE PLAN: The patient will be weight-bearing as tolerated. The patient will followup with us in 2 weeks. #[id number] MTDD
== END 2018-10-03 11:50 | disposition home or self-care (01) ==
LOC: AMB 05:49
PROVIDERS: ATTEND Orthopaedic Surgery
DX: M25.551 Pain in right hip (principal); M16.11 Unilateral primary osteoarthritis, right hip; I25.10 Atherosclerotic heart disease of native coronary artery without angina pectoris; I10 Essential (primary) hypertension; I25.2 Old myocardial infarction; K21.9 Gastro-esophageal reflux disease without esophagitis; E66.9 Obesity, unspecified; Z79.01 Long term (current) use of anticoagulants; Z79.899 Other long term (current) drug therapy
CPT/HCPCS: 01200; 20610; 76000; 80307; 87070; 87077; J1030; J3490; J7120

== ENCOUNTER 2019-02-07 00:28 | Inpatient (IN) | payer BC ==
--- NOTE | 2019-02-07 01:25 | ED.PDOC ---
History of Present Illness - General Chief Complaint: Dental/Mouth Stated Complaint: Facial Swelling/Tooth Infection Time Seen by Provider: 02/07/19 00:45 Source: patient, family Exam Limitations: no limitations - History of Present Illness Initial Comments: Patient presents with left sided facial swelling. He was at the dentist today and was prescribed amoxicillin for a dental infection. 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 Since then, the left side of his face, which is where the infection was, has swollen. His tongue has not swollen and he has not had difficulty swallowing, tightness in his throat, nor difficulty breathing/wheezing. No previous drug allergies. He has had penicillin before. No other complaints. Timing/Duration: 4-6 hours Severity: moderate Improving Factors: nothing Worsening Factors: nothing Associated Symptoms: denies symptoms Allergies/Adverse Reactions: Allergies NO KNOWN ALLERGY Allergy (Verified 07/01/15 15:24) Home Medications: Ambulatory Orders Carvedilol 25 mg PO BID 12/25/17 Amlodipine Besylate 5 mg PO DAILY #20 tab 07/03/18 Tramadol HCl 50 mg PO Q8HR PRN #20 tab 07/03/18 Apixaban [Eliquis] 5 mg PO BID 10/02/18 Hydrochlorothiazide 12.5 mg PO DAILY@0700 10/02/18 Ibuprofen [Ibuprofen 200] 200 mg PO Q8HR PRN 10/02/18 Lisinopril [Prinivil] 20 mg PO BID 10/02/18 Review of Systems - Review of Systems Constitutional: States: no symptoms reported EENTM: States: see HPI Respiratory: States: no symptoms reported Cardiology: States: no symptoms reported Gastrointestinal/Abdominal: States: no symptoms reported Genitourinary: States: no symptoms reported Musculoskeletal: States: no symptoms reported Skin: States: no symptoms reported Neurological: States: no symptoms reported Endocrine: States: no symptoms reported Hematologic/Lymphatic: States: no symptoms reported Past Medical History (General) - Patient Medical History Hx Seizures: No Hx Stroke: No Hx Dementia: No Hx Asthma: No Hx of COPD: No Hx Cardiac Disorders: Yes Hx Congestive Heart Failure: Yes Hx Pacemaker: No Hx Hypertension: Yes Hx Thyroid Disease: No Hx Diabetes: No Hx Gastroesophageal Reflux: Yes Hx Renal Disease: No Hx MRSA: No - Vaccination History Hx Tetanus, Diphtheria Vaccination: Yes Hx Influenza Vaccination: Yes Hx Pneumococcal Vaccination: Yes Immunizations Up to Date: Yes - Social History Hx Tobacco Use: No Hx Alcohol Use: No Hx Substance Use: No Hx Physical Abuse: No Hx Emotional Abuse: No Family Medical History - Family History Mother Family History: No Known Living Status: Still Living Hx Family Asthma: No Hx Family Congestive Heart Failure: No Hx Family Hypertension: No Hx Family Stroke: No Hx Cardiac Disease: No Hx Family Diabetes: No Hx Family Cancer: No Physical Exam - Physical Exam General Appearance: Alert Eye Exam: bilateral normal Ears, Nose, Throat: other - edematous left buccal cavity. No tongue swelling. NTTP. No LAD palpable. Neck: non-tender, full range of motion, supple Respiratory: lungs clear, normal breath sounds Cardiovascular/Chest: normal peripheral pulses, regular rate, rhythm Gastrointestinal/Abdominal: normal bowel sounds, non tender Back Exam: normal inspection, no CVA tenderness Extremity: normal range of motion, non-tender, normal inspection Neurologic: no motor/sensory deficits, alert, normal mood/affect, oriented x 3 Skin Exam: normal color Lymphatic: no adenopathy Progress - Progress Progress: 02/07/19 03:00 Laboratory Tests 02/07/19 02/07/19 01:00 01:00 WBC 11.1 H RBC 4.81 Hgb 15.2 Hct 42.2 MCV 87.7 MCH 31.5 H MCHC 35.9 RDW 12.7 Plt Count 153 MPV 9.7 Absolute Neuts (auto) 6.20 Absolute Lymphs (auto) 2.70 Absolute Monos (auto) 1.10 H Absolute Eos (auto) 0.90 H Absolute Basos (auto) 0.10 Neutrophils % 56.3 Lymphocytes % 24.5 Monocytes % 9.7 H Eosinophils % 8.3 H Basophils % 1.2 Sodium 134 L Potassium 3.6 Chloride 101 Carbon Dioxide 24 Anion Gap 12.6 BUN 11 Creatinine 0.68 BUN/Creatinine Ratio 16.2 Random Glucose 244 H Serum Osmolality 275.7 Calcium 8.8 Total Bilirubin 0.7 AST 22 ALT 22 Alkaline Phosphatase 77 Serum Total Protein 7.4 Albumin 4.1 Globulin 3.3 Albumin/Globulin Ratio 1.2 CT soft tissue of the maxillo-facial area showed cellulitis from odontogenic infections. Patient given clindamycin 900 mg IV in the E.D. Blood cultures taken and sent. Started on fluids. Admitted for facial cellullitis by Sebastian Tovar. Departure - Departure Clinical Impression: Cellulitis and abscess of face Disposition: Admit Patient Condition: Good Departure Forms: ED Discharge - Pt. Copy, Patient Portal Self Enrollment Diet: other - as per hospitalist Activity: increase activity as tolerated Referrals: Kindra Salvador NP [Primary Care Provider] - 1-2 Weeks Home Medications: Ambulatory Orders Carvedilol 25 mg PO BID 12/25/17 Amlodipine Besylate 5 mg PO DAILY #20 tab 07/03/18 Tramadol HCl 50 mg PO Q8HR PRN #20 tab 07/03/18 Apixaban [Eliquis] 5 mg PO BID 10/02/18 Hydrochlorothiazide 12.5 mg PO DAILY@0700 10/02/18 Ibuprofen [Ibuprofen 200] 200 mg PO Q8HR PRN 10/02/18 Lisinopril [Prinivil] 20 mg PO BID 10/02/18 Critical Care Note - Critical Care Note Total Time (mins): 60
--- NOTE | 2019-02-07 02:40 | CT ---
EXAM DESCRIPTION: Maxillofacial CLINICAL HISTORY: 59 years Male, swollen left cheek, dental infection COMPARISON: None. TECHNIQUE: Multiple helical axial tomographic images were obtained of the facial bones following administration of intravenous contrast. Coronal and sagittal reformatted images were obtained. This exam was performed according to our departmental dose-optimization program, which includes automated exposure control, adjustment of the mA and/or kV according to patient size and/or use of iterative reconstruction technique. FINDINGS: There is left facial and left upper liip subcutaneous stranding/swelling. No evidence of abscess. Several cavitated maxillary and mandibular teeth are demonstrated. Periapical lucency adjacent several teeth including left mandibular molars noted compatible with periodontal disease. Salivary glands appear unremarkable. No evidence of adenopathy. Retropharyngeal soft tissues appear unremarkable. Epiglottis appears normal. Paranasal sinuses are clear. Mastoid air cells and middle ear spaces are clear. Degenerative changes of the cervical spine noted. IMPRESSION: Left facial and upper lip soft tissue swelling suggestive of cellulitis which may be related to dental/periodontal disease. No evidence of abscess. Electronically signed by: Michael Alcantara MD 02/07/2019 2:38 AM CDT
[2019-02-07] MEDS ORDERED: MORPHINE SULFATE INJ 10 MG/ML VIAL IV ONE (02:46)
[2019-02-07] MEDS ORDERED: CLINDAMYCIN IV 900MG 900 MG in PREMIX BAG 1 BAG IVPB ONE (02:53)
[2019-02-07] MEDS ORDERED: CLINDAMYCIN IV 900MG 50 ML IVPB ONE (02:58)
--- NOTE | 2019-02-07 03:16 | HP ---
SUPERVISING PHYSICIAN: Dave Brunson M.D. CHIEF COMPLAINT: Facial swelling. HISTORY OF PRESENT ILLNESS: Mr. Batista is a 59 year-old male patient that presented to the E. R. early last night with left sided facial swelling. He had been seen previously in the day and was prescribed some Amoxicillin for a dental infection, and had taken 1 dose 7 hours prior to arrival. He was told by his dentist that he had an abscessed tooth and is scheduled to have a root canal in the following weeks. The cellulitis, according to the patient, had developed within the last couple of days and slowly worsened with increase in pain after which point he presented to the E. R. Vital signs in the E. R. showed he was febrile with a temperature of 100.2. Initial vital signs showed a heart rate of 73, blood pressure showing to be hypertensive at 211/72, satting 93% on room air with respirations 18. Initial laboratory studies showed he had a leukocytosis of 11,100 without any evidence of a left shift currently. Chemistries were fairly unremarkable, just a mildly low sodium at 134. He then had a maxillofacial CT with noted left facial and upper lip soft tissue swelling suggestive of cellulitis which may be related to dental or periodontal disease. Per radiology interpretation there was no actual abscess noted. His retro periodontal soft tissues were unremarkable as well as epiglottis. There was note of several cavitated maxillary and mandibular teeth with periapical lucency adjacent to several teeth, including left mandibular molars which is compatible with periodontal disease. He was then started on clindamycin and given pain medicine. He is now going to be admitted for further treatment and initiation of parenteral antibiotics for facial cellulitis involving the left orbital region. PAST MEDICAL HISTORY: 1. Myocardial infarction in April 2018. 2. Gastroesophageal reflux disease. 3. Hypertension. PAST SURGICAL HISTORY: 1. Cholecystectomy. HOME MEDICATIONS: 1. Carvedilol 25 mg b.i.d. 2. Eliquis 5 mg b.i.d. 3. Amlodipine 5 mg daily. 4. Ibuprofen 200 mg every 8 hours as needed. 5. Hydrochlorothiazide 12.5 mg daily. 6. Tramadol 50 mg every 8 hours as needed. 7. Lisinopril 20 mg b.i.d. ALLERGIES: NO KNOWN DRUG ALLERGIES. FAMILY HISTORY: SOCIAL HISTORY: REVIEW OF SYSTEMS: CONSTITUTIONAL: Positive for fever and general malaise. HEENT: As noted in History of Present Illness, dental pain and facial swelling. No reported vision changes, ear aches, sore throat, nasal congestion or headaches. RESPIRATORY: Denies any coughing, wheezing or shortness of breath. CARDIOVASCULAR: Denies any chest pains, palpitations or syncopal episodes. GASTROINTESTINAL: Denies any nausea, vomiting, diarrhea, constipation or abdominal pains. GENITOURINARY: Denies any dysuria, hematuria or polyuria. SKIN: No rashes, lesions, moles or unexplained bleeding. NEUROLOGIC: Denies any headaches, vision changes, syncopal episodes, ataxia or other focal neurological deficits. PHYSICAL EXAMINATION: VITAL SIGNS: Initial temperature is 100.2, blood pressure 211/72, respirations 18, satting 93% on room air with heart rate 73. Weight 93.2 kg. GENERAL: On examination on the Medical/Surgical floor, the patient was resting comfortably. Appeared to be in no acute distress. He obviously is unwell but is alert. HEENT: Tympanic membranes are clear bilaterally. There is some left periorbital swelling. Oropharynx is pink with mucosal membranes moist and the patient having poor dentition. No notable swelling of the tongue. Left side of the face more in the maxillary area is swollen and tender to palpation with his upper lip showing to be swollen compared to his lower lip. No rashes are noted. No crepitus. No obvious areas of fluctuation or drainage. NECK: Non-tender to palpation. He has full range of motion without any jugular venous distention. CHEST: Lung sounds are clear to auscultation bilaterally without any rhonchi, wheezing or rales. CARDIOVASCULAR: Regular rate and rhythm without appreciable murmurs, gallops, or rubs. ABDOMEN: Soft, non-tender. Positive bowel sounds. BACK: Without any CVA or vertebral tenderness. EXTREMITIES: Without any clubbing, cyanosis or edema. NEUROLOGIC: He is alert and oriented times three. Facial feature were symmetrical. There was notable left swelling of the eye. Pupils were equal and reactive. No notable nystagmus. He remains alert and oriented times three. SKIN: Warm, pink and dry. LYMPHATICS: No notable adenopathy. LABORATORY: White count 11,100, hemoglobin 15.2, hematocrit 42.2, platelet count 153,000. Differential showed to be without a left shift. Chemistry showed a mildly low sodium at 134, otherwise electrolytes were within normal limits. BUN 11, creatinine 0.68, lactic acid 1.0. Liver functions are all within normal limits. RADIOLOGY: Maxillofacial CT per radiology interpretation shows left facial and upper lip soft tissue swelling suggestive of cellulitis which may relate to dental or periodontal disease. No evidence of abscess. ASSESSMENT: 1. Facial cellulitis secondary to periodontal disease with no evidence of abscess noted on CT but with swelling extending up into the left orbital region. 2. Leukocytosis secondary to cellulitis of the face. 3. History of previous myocardial infarction in April 2017. 4. Hypertension poorly controlled probably due to level of pain on initial presentation with the patient showing good response to pain medicines. 5. Gastroesophageal reflux disease. 6. Electrolyte imbalance with a mild hypokalemia. PLAN: Mr. Batista is going to be admitted for initiation of parenteral antibiotics given that the cellulitis and swelling has extended up into his left orbital region. Will start him on Unasyn. He was given an additional dose of clindamycin in the E. R. Will review his medications and restart those as appropriate. He will be on DVT prophylaxis per protocol. Will anticipate length of stay to be 2 to 3 days. Until he can show good clinical improvement and discharge to outpatient management will continue to treat as needed. He will be given pain management as needed with Toradol initially and this will be followed-up with [place] or morphine. He does have an appointment to see his dentist in [place] this coming Tuesday. Anticipate we will be able to discharge by Tuesday and if he responds well to treatment will discharge on Augmentin. #[id number] [facility]
[2019-02-07] MEDS ORDERED: LACTATED RINGERS 1,000 ML IVS PRN (03:29)
[2019-02-07] MEDS ORDERED: IV SET AND CAP CHANGE INJ INJ SCH (03:30)
[2019-02-07] MEDS ORDERED: ONDANSETRON INJ 4 MG/2 ML VIAL ONE (03:50)
[2019-02-07] MEDS ORDERED: ONDANSETRON INJ 4 MG/2 ML VIAL IV PRN (03:51)
[2019-02-07] MEDS: MORPHINE SULFATE INJ 10 MG/ML VIAL IV PRN (04:16)
[2019-02-07] MEDS ORDERED: cloNIDine HCL 0.1 MG TAB PO ONE (05:13)
[2019-02-07] MEDS ORDERED: CLINDAMYCIN IV 900MG 900 MG in PREMIX BAG 1 BAG IVPB SCH (09:00)
[2019-02-07] MEDS ORDERED: SODIUM CHLORIDE 0.9% 100ML 100 ML IVPB ONE ×3 (09:35→20:04)
[2019-02-07] MEDS ORDERED: AMPICILLIN & SULBACTAM SODIUM 1.5 GM VIAL ONE ×3 (09:43→20:03)
[2019-02-07] MEDS: LISINOPRIL 10 MG TAB PO SCH ×2 (09:54→20:37)
[2019-02-07] MEDS: amLODIPine BESYLATE 5 MG TAB PO SCH (09:54)
[2019-02-07] MEDS: ENOXAPARIN SODIUM 40 MG/0.4 ML SYG SUBCU SCH (09:54)
[2019-02-07] MEDS: CARVEDILOL 12.5 MG TAB PO SCH ×2 (09:54→20:37)
[2019-02-07] MEDS: APIXABAN 2.5 MG TAB PO SCH ×2 (09:55→20:38)
[2019-02-07] MEDS: hydroCHLOROthiazide 12.5 MG CAP PO SCH (09:55)
[2019-02-07] MEDS: AMPICILLIN & SULBACTAM SODIUM 3 GM in SODIUM CHLORIDE 0.9% 100ML 100 ML IVPB SCH ×3 (10:00→21:48)
[2019-02-07] MEDS ORDERED: KETOROLAC TROMETHAMINE INJ 30 MG/ML VIAL IV ONE (12:09)
[2019-02-07] MEDS: SODIUM CHLORIDE 0.9% (FLUSH) 10 ML SYG IV PRN (21:49)
[2019-02-08] MEDS ORDERED: AMPICILLIN & SULBACTAM SODIUM 1.5 GM VIAL ONE ×5 (03:48→19:43)
[2019-02-08] MEDS ORDERED: SODIUM CHLORIDE 0.9% 100ML 100 ML IVPB ONE ×5 (03:49→19:43)
[2019-02-08] MEDS: AMPICILLIN & SULBACTAM SODIUM 3 GM in SODIUM CHLORIDE 0.9% 100ML 100 ML IVPB SCH ×4 (04:05→22:01)
[2019-02-08] MEDS: SODIUM CHLORIDE 0.9% (FLUSH) 10 ML SYG IV PRN (04:06)
[2019-02-08] MEDS: hydroCHLOROthiazide 12.5 MG CAP PO SCH (09:05)
[2019-02-08] MEDS: APIXABAN 2.5 MG TAB PO SCH ×2 (09:05→20:27)
[2019-02-08] MEDS: amLODIPine BESYLATE 5 MG TAB PO SCH (09:05)
[2019-02-08] MEDS: LISINOPRIL 10 MG TAB PO SCH ×2 (09:06→20:26)
[2019-02-08] MEDS: CARVEDILOL 12.5 MG TAB PO SCH ×2 (09:06→20:27)
[2019-02-08] MEDS: ENOXAPARIN SODIUM 40 MG/0.4 ML SYG SUBCU SCH (09:11)
[2019-02-08] MEDS: MORPHINE SULFATE INJ 10 MG/ML VIAL IV PRN (17:48)
[2019-02-08] MEDS ORDERED: APIXABAN 5 MG TAB PO ONE (19:47)
--- NOTE | 2019-02-08 21:11 | PN ---
DATE: 02/08/19 SUPERVISING PHYSICIAN: Dave Brunson M.D. SUBJECTIVE: The patient reports that his pain is much less today. It is noted that his swelling had gone down. He has been afebrile. He has been able to eat. We discussed plan of care of possibly discharging tomorrow to transition to oral medication. OBJECTIVE: VITAL SIGNS: Temperature 92, pulse 63, blood pressure 163/69, respirations 15, satting 94% on room air. I's and O's are well balanced. Weight is 93.1 kg. GENERAL: The patient appears to be resting comfortably in no acute distress. HEENT: There is notable decrease in the swelling to the left upper maxillary area as well as the upper lip which appears to be back to normal size. He can now fully open both eyes with just very minimal swelling residually left in the left orbital area. CHEST: Lungs are clear to auscultation. HEART: Regular rate and rhythm. ABDOMEN: Soft, non-tender. Positive bowel sounds. EXTREMITIES: Without any edema. NEUROLOGIC: He is alert and oriented times three. LABORATORY: White count is normalized to 8,500, hemoglobin 13.8, hematocrit 39.6, platelet count 131,000. Differential shows to be without a left shift. Chemistries show just some mildly low potassium at 3.5 otherwise within normal limits. BUN 15, creatinine 0.72, calcium 8.7. MICROBIOLOGY: Cultures remain pending. RADIOLOGY: No additional radiographic studies. ASSESSMENT: 1. Facial cellulitis secondary to periodontal disease with no evidence of abscess noted on CT but with swelling extending up into the left orbital region with the patient showing good response to Unasyn. 2. Leukocytosis secondary to #1 returned to baseline levels after initiation of antibiotic therapy. 3. History of previous myocardial infarction in April 2017. 4. Hypertension poorly controlled probably due to level of pain on initial presentation with the patient showing good response to pain medicines. 5. Gastroesophageal reflux disease. 6. Electrolyte imbalance with initial mild hypokalemia that persists. PLAN: Will continue with current plan of care with Unasyn. He has been showing good response to treatment. He is on DVT prophylaxis as per protocol. I did discuss with him and his family that more likely if he progresses clinically he is today, he will discharge tomorrow and will start him on some Augmentin. Will continue with pain management as needed. He does remain on Eliquis. He has an appointment to see his dentist in [place] this coming Tuesday. Until we can transition to outpatient management, will continue to monitor and treat as needed. #[id number] [facility]
[2019-02-09] MEDS: SODIUM CHLORIDE 0.9% (FLUSH) 10 ML SYG IV PRN (04:04)
[2019-02-09] MEDS: AMPICILLIN & SULBACTAM SODIUM 3 GM in SODIUM CHLORIDE 0.9% 100ML 100 ML IVPB SCH ×2 (04:05→09:37)
[2019-02-09] MEDS ORDERED: AMPICILLIN & SULBACTAM SODIUM 1.5 GM VIAL ONE (06:51)
[2019-02-09] MEDS ORDERED: SODIUM CHLORIDE 0.9% 100ML 100 ML IVPB ONE (06:52)
[2019-02-09] MEDS: CARVEDILOL 12.5 MG TAB PO SCH (09:34)
[2019-02-09] MEDS: hydroCHLOROthiazide 12.5 MG CAP PO SCH (09:34)
[2019-02-09] MEDS: LISINOPRIL 10 MG TAB PO SCH (09:34)
[2019-02-09] MEDS: amLODIPine BESYLATE 5 MG TAB PO SCH (09:34)
[2019-02-09] MEDS: ENOXAPARIN SODIUM 40 MG/0.4 ML SYG SUBCU SCH (09:36)
[2019-02-09] MEDS: APIXABAN 2.5 MG TAB PO SCH (10:03)
[2019-02-09 10:56] VITALS: BP 182/79; TEMP 98.2; O2SAT 95
--- NOTE | 2019-02-27 15:30 | DS ---
SUPERVISING PHYSICIAN: Donn Paulino MD ADMISSION DIAGNOSES: 1. Facial cellulitis secondary to periodontal disease with no evidence of abscess noted on CT but with swelling extending up into the left orbital region. 2. Leukocytosis secondary to cellulitis of the face. 3. History of previous myocardial infarction in April 2017. 4. Hypertension poorly controlled probably due to level of pain on initial presentation with the patient showing good response to pain medicines. 5. Gastroesophageal reflux disease. 6. Electrolyte imbalance with a mild hypokalemia. DISCHARGE DIAGNOSES: 1. Facial cellulitis secondary to periodontal disease with no evidence of abscess noted on CT but with swelling extending up into the left orbital region with the patient showing good response to Unasyn and transition to outpatient management with Augmentin. 2. Leukocytosis secondary to #1 returned to baseline levels after initiation of antibiotic therapy. 3. History of previous myocardial infarction in April 2017. 4. Hypertension poorly controlled probably due to level of pain on initial presentation with the patient showing good response to pain medicines. 5. Gastroesophageal reflux disease. 6. Electrolyte imbalance with initial mild hypokalemia that persists. REASON FOR HOSPITALIZATION: Mr. Batista is a 59 year-old male patient that presented to the Emergency Room early last night with left sided facial swelling. He had been seen previously in the day and was prescribed some Amoxicillin for a dental infection, and had taken 1 dose 7 hours prior to arrival. He was told by his dentist that he had an abscessed tooth and is scheduled to have a root canal in the following weeks. The cellulitis, according to the patient, had developed within the last couple of days and slowly worsened with increase in pain after which point he presented to the E. R. Vital signs in the E. R. showed he was febrile with a temperature of 100.2. Initial vital signs showed a heart rate of 73, blood pressure showing to be hypertensive at 211/72, satting 93% on room air with respirations 18. Initial laboratory studies showed he had a leukocytosis of 11,100 without any evidence of a left shift currently. Chemistries were fairly unremarkable, just a mildly low sodium at 134. He then had a maxillofacial CT with noted left facial and upper lip soft tissue swelling suggestive of cellulitis which may be related to dental or periodontal disease. Per radiology interpretation there was no actual abscess noted. His retro periodontal soft tissues were unremarkable as well as epiglottis. There was note of several cavitated maxillary and mandibular teeth with periapical lucency adjacent to several teeth, including left mandibular molars which is compatible with periodontal disease. He was then started on clindamycin and given pain medicine. He is now going to be admitted for further treatment and initiation of parenteral antibiotics for facial cellulitis involving the left orbital region. LABORATORY: White count initially was 11,100, prior to discharge was 8,500. Differential showed to be without a left shift. Chemistries were fairly unremarkable. Sodium was a little low on admission at 134. Other electrolytes were normal including liver enzymes. At discharge, potassium was 3.4 but sodium had normalized. Other electrolytes were within normal limits. Creatinine was at 0.62. MICROBIOLOGY: Blood cultures showed no growth after 5 days. RADIOLOGY: Maxillofacial CT per radiology interpretation showed left facial and upper lip soft tissue swelling suggestive of cellulitis and upper lip which may be related to the dental/periodontal disease, no evidence of abscess. Please see that report for details. HOSPITAL COURSE: Mr. Batista was admitted as noted for facial cellulitis and started on antibiotic coverage initially in the Emergency Room and then transitioned to Unasyn. He was given pain management. He did show good response to treatment with the cellulitis, redness and swelling nearly resolving prior to discharge. He did have an appointment to see a dental specialist prior to discharge that had been arranged. It is felt he improved clinically well enough and responded to antibiotic treatments to be discharged to continue with outpatient management and oral antibiotics. ASSESSMENT: The patient's vital signs on discharge, he is afebrile with a temperature of 98.2, pulse 58, blood pressure 182/79, respirations 16, oxygen saturation 95% on room air. PLAN: Discharge to followup with a dental specialist and continue antibiotic therapy. Mr. Batista was to resume all of his previous medications and return to the hospital for any worsening symptoms. Discharge Diet: Normal diet as tolerated. Activities: As tolerated. NEW PRESCRIPTIONS ON DISCHARGE: 1. Augmentin 875 mg twice daily, #28, no refills. All other medications prior to hospitalization were continued. It was recommended that he get a probiotic of choice. Condition on discharge: Stable and improved. Disposition: The patient is discharged home. #[id number] [facility]
== END 2019-02-09 12:10 | disposition home or self-care (01) | DRG 121 ==
LOC: ER 00:28 → OBSVTOIN 03:15 → MS 03:15
PROVIDERS: ADMIT Nurse Practitioner; ATTEND Nurse Practitioner Family
PROC: BN251ZZ Computerized Tomography (CT Scan) of Facial Bones using Low Osmolar Contrast (ICD-10-PCS; principal; 2019-02-07)
PROC: BN261ZZ Computerized Tomography (CT Scan) of Mandible using Low Osmolar Contrast (ICD-10-PCS; 2019-02-07)
DX: H05.012 Cellulitis of left orbit (principal); L03.211 Cellulitis of face; K05.6 Periodontal disease, unspecified; E87.6 Hypokalemia; I25.2 Old myocardial infarction; K21.9 Gastro-esophageal reflux disease without esophagitis; I10 Essential (primary) hypertension; Z79.02 Long term (current) use of antithrombotics/antiplatelets; Z79.1 Long term (current) use of non-steroidal anti-inflammatories (NSAID); Z79.891 Long term (current) use of opiate analgesic; Z79.899 Other long term (current) drug therapy

== ENCOUNTER → 2019-03-23 | Outpatient (CLI) | payer BC | LOC: LAB.O 16:19 | PROVIDERS: ATTEND Internal Medicine Hematology & Oncology | DX: I26.99 Other pulmonary embolism without acute cor pulmonale (principal); I82.91 Chronic embolism and thrombosis of unspecified vein ==

== ENCOUNTER → 2019-05-29 | Outpatient (CLI) | payer BC | LOC: LAB.O 12:17 | PROVIDERS: ATTEND Internal Medicine Hematology & Oncology | DX: I26.99 Other pulmonary embolism without acute cor pulmonale (principal); I82.91 Chronic embolism and thrombosis of unspecified vein ==

== ENCOUNTER → 2019-08-04 | Outpatient (CLI) | payer BC | LOC: YCFC.O 07:42 | PROVIDERS: ATTEND Family Medicine | DX: I10 Essential (primary) hypertension (principal); F03.90 Unspecified dementia, unspecified severity, without behavioral disturbance, psychotic disturbance, mood disturbance, and anxiety; E78.5 Hyperlipidemia, unspecified; R53.83 Other fatigue; Z12.5 Encounter for screening for malignant neoplasm of prostate ==

== ENCOUNTER → 2019-11-30 | Outpatient (CLI) | payer BC | LOC: YCFC.O 07:47 | PROVIDERS: ATTEND Family Medicine | DX: E11.9 Type 2 diabetes mellitus without complications (principal) ==

== ENCOUNTER → 2020-01-01 | Outpatient (CLI) | payer BC | LOC: LAB.O 12:01 | PROVIDERS: ATTEND Internal Medicine Hematology & Oncology | DX: I26.99 Other pulmonary embolism without acute cor pulmonale (principal) ==

== ENCOUNTER 2020-04-06 16:27 | Emergency (ER) | payer BC ==
[2020-04-06] MEDS ORDERED: DEXAMETHASONE INJ 10 MG/ML VIAL IM ONE (16:43)
--- NOTE | 2020-04-06 16:44 | ED.PDOC ---
History of Present Illness - General Chief Complaint: Dental/Mouth Stated Complaint: Tooth pain and facial redness/swelling Time Seen by Provider: 04/06/20 16:28 Source: patient, RN notes reviewed, Vital Signs reviewed, family, old records Exam Limitations: no limitations - History of Present Illness Initial Comments: 60 yo male with multiple dental carries comes in with left upper tooth pain, swelling. states this happens often. Is suppose to get all his teeth pulled but only can get a few at a time due to the cost. no fever, no difficulty swallowing, no recent trauma. Patient is not a diabetic. Allergies/Adverse Reactions: Allergies NO KNOWN ALLERGY Allergy (Verified 02/07/19 11:00) Home Medications: Ambulatory Orders Carvedilol 25 mg PO BID 12/25/17 Amlodipine Besylate 5 mg PO DAILY #20 tab 07/03/18 Apixaban [Eliquis] 5 mg PO BID 10/02/18 Hydrochlorothiazide 12.5 mg PO DAILY 10/02/18 Lisinopril [Prinivil] 20 mg PO BID 10/02/18 Acetaminophen W/ Codeine [Tylenol W/ CODEINE #3] 1 ea PO Q8H PRN #6 ea 04/06/20 Clindamycin HCl [Cleocin] 300 mg PO Q8H #30 capsule 04/06/20 Prednisone 20 mg PO DAILY #4 tab 04/06/20 Review of Systems - Review of Systems Constitutional: Denies: chills, fever EENTM: States: mouth pain, mouth swelling. Denies: blurred vision, ear pain Respiratory: Denies: cough, short of breath Cardiology: Denies: chest pain, palpitations Gastrointestinal/Abdominal: Denies: abdominal pain, nausea, vomiting Musculoskeletal: Denies: back pain Skin: Denies: rash Neurological: Denies: numbness, paresthesia, seizure, weakness Endocrine: Denies: unexplained weight gain, unexplained weight loss Hematologic/Lymphatic: Denies: easy bleeding, easy bruising Past Medical History (General) - Patient Medical History Hx Seizures: No Hx Stroke: No Hx Dementia: No Hx Asthma: No Hx of COPD: No Hx Cardiac Disorders: Yes Hx Congestive Heart Failure: Yes Hx Pacemaker: Yes Hx Hypertension: Yes Hx Thyroid Disease: No Hx Diabetes: No Hx Gastroesophageal Reflux: Yes Hx Renal Disease: No Hx MRSA: No - Vaccination History Hx Tetanus, Diphtheria Vaccination: Yes Hx Influenza Vaccination: Yes Hx Pneumococcal Vaccination: Yes - Social History Hx Tobacco Use: No Hx Alcohol Use: No Hx Substance Use: No Hx Physical Abuse: No Hx Emotional Abuse: No Family Medical History - Family History Mother Family History: No Known Living Status: Still Living Hx Family Asthma: No Hx Family Congestive Heart Failure: No Hx Family Hypertension: No Hx Family Stroke: No Hx Cardiac Disease: No Hx Family Diabetes: No Hx Family Cancer: No Father Living Status: Cause of : Fell and hit head on a rock Physical Exam - Physical Exam General Appearance: Alert, Comfortable, No apparent distress, Well Developed, Well Groomed, Well Hydrated, Well Nourished Eye Exam: bilateral normal Nasal Exam: normal inspection, active bleeding Throat Exam: pharynx normal, dental tenderness, other - dental carries, gum ertyeham without evidence of abscess. mild facial swelling noted. Neck: non-tender, full range of motion, supple, normal inspection, trachea midline Cardiovascular/Respiratory: regular rate, rhythm, normal peripheral pulses, no JVD, normal breath sounds, no respiratory distress, murmur - chronic per Abdominal Exam: non-tender, no organomegaly, no hernia Neurologic: collar stay fuser tender II-XII nml as tested, no motor/sensory deficits, alert, normal mood/affect, oriented x 3 Skin Exam: normal color, warm/dry Progress - Progress Progress: 04/06/20 17:02 patient Hypertensive, did not take bp meds this morning. repeat BP 180/90. encouraged patient to take his bp meds when he gets home. denies cp, sob, headache, change in vision, n/v. 04/06/20 17:06 - Results/Orders Results/Orders: The data reviewed when caring for this patient included: nurse notes, prior records, etc. The history and assessments from nurses notes were reviewed and considered, and the patient's home medication list was also reviewed and considered. My assessment and the results of testing completed here in the ED were discussed with the patient/family. All questions were answered, and they express understanding of my assessment and the plan. They have been instructed to return if their symptoms worsen, and have been asked to follow up with a dentist to recheck today's presenting complaint. return precautions given. I have reviewed medication, benefits, alternatives and side effects. Patient decided to proceed with medication.patient was discharged home with in stable condition. Lisbeth Bauer DO #[id number] Departure - Departure Clinical Impression: Chronic dental infection, Chronic dental pain Time of Disposition: 16:46 Disposition: Discharge to Home or Self Care Departure Forms: ED Discharge - Pt. Copy, Patient Portal Self Enrollment Instructions: DI for Mouth Pain, Tooth Abscess (DC), Tooth Decay, Adult (DC), Dental Pain (DC) Referrals: Stefano Peters MD [Primary Care Provider] - 1-2 Days Prescriptions: Clindamycin HCl [Cleocin] 300 mg PO Q8H #30 capsule Prednisone 20 mg PO DAILY #4 tab Acetaminophen W/ Codeine [Tylenol W/ CODEINE #3] 1 ea PO Q8H PRN #6 ea PRN Reason: Pain Home Medications: Ambulatory Orders Carvedilol 25 mg PO BID 12/25/17 Amlodipine Besylate 5 mg PO DAILY #20 tab 07/03/18 Apixaban [Eliquis] 5 mg PO BID 10/02/18 Hydrochlorothiazide 12.5 mg PO DAILY 10/02/18 Lisinopril [Prinivil] 20 mg PO BID 10/02/18 Acetaminophen W/ Codeine [Tylenol W/ CODEINE #3] 1 ea PO Q8H PRN #6 ea 04/06/20 Clindamycin HCl [Cleocin] 300 mg PO Q8H #30 capsule 04/06/20 Prednisone 20 mg PO DAILY #4 tab 04/06/20
[2020-04-06 16:51] VITALS: TEMP 98.2
[2020-04-06] MEDS ORDERED: HYDROcodone 5MG/APAP 325MG 1 EA TAB PO ONE (16:59)
[2020-04-06 17:08] VITALS: BP 198/77; O2SAT 92
== END 2020-04-06 17:09 | disposition home or self-care (01) ==
LOC: ER 16:27
DX: K04.7 Periapical abscess without sinus (principal); K02.9 Dental caries, unspecified; G89.29 Other chronic pain; K21.9 Gastro-esophageal reflux disease without esophagitis; I11.0 Hypertensive heart disease with heart failure; I50.9 Heart failure, unspecified; Z95.0 Presence of cardiac pacemaker; Z79.899 Other long term (current) drug therapy; Z79.01 Long term (current) use of anticoagulants

== ENCOUNTER 2020-06-26 00:44 | Emergency (ER) | payer BC ==
[2020-06-26] MEDS ORDERED: CEFEPIME 2 GM in SODIUM CHL 0.9% 100ML MINI-BAG 100 ML IVPB ONE (01:22)
--- NOTE | 2020-06-26 01:22 | ED.PDOC ---
History of Present Illness - General Time Seen by Provider: 06/26/20 01:15 Additional Information: Patient is a 60-year-old male who presents to the ED in full cardiac arrest via EMS. Per EMS, family called for patient being short of breath and unresponsive. The duration of shortness of breath is unknown. When EMS arrived family indicates patient had been unresponsive for 30 minutes. Patient's initial rhythm was PEA and he was given epinephrine and CPR was started. A Tristian tube was placed and in route to the ED patient regained a pulse. History is otherwise unknown. 0134: Updated history: Patient's and family are now in the ED and provide additional history. Patient was working outside throughout the day yesterday and complained of shortness of breath and had to take frequent breaks. indicates this is not unusual for patient and they thought it was because he was working in a [employer] environment. Patient came in and had dinner and then went to bed. Patient awoke later in the evening complaining of shortness of breath and then became unresponsive. Family called EMS and they indicated that it took "a long time" for them to arrive. Downtime was at least 30 minutes. indicates that patient has a history of heart attack and has had a blood clot in the past and is on Eliquis. She is unaware of a history of CHF. Patient has no cardiac stents and has not had bypass surgery. He does not have diabetes but does have hypertension. - History of Present Illness Allergies/Adverse Reactions: Allergies NO KNOWN ALLERGY Allergy (Verified 02/07/19 11:00) Home Medications: Ambulatory Orders Carvedilol 25 mg PO BID 12/25/17 Amlodipine Besylate 5 mg PO DAILY #20 tab 07/03/18 Apixaban [Eliquis] 5 mg PO BID 10/02/18 Hydrochlorothiazide 12.5 mg PO DAILY 10/02/18 Lisinopril [Prinivil] 20 mg PO BID 10/02/18 Acetaminophen W/ Codeine [Tylenol W/ CODEINE #3] 1 ea PO Q8H PRN #6 ea 04/06/20 Clindamycin HCl [Cleocin] 300 mg PO Q8H #30 capsule 04/06/20 Prednisone 20 mg PO DAILY #4 tab 04/06/20 Review of Systems - Review of Systems Unable to Obtain Due To: condition, intubated Past Medical History (General) - Patient Medical History Hx Seizures: No Hx Stroke: No Hx Dementia: No Hx Asthma: No Hx of COPD: No Hx Cardiac Disorders: Yes Hx Congestive Heart Failure: Yes Hx Pacemaker: Yes Hx Hypertension: Yes Hx Thyroid Disease: No Hx Diabetes: No Hx Gastroesophageal Reflux: Yes Hx Renal Disease: No Hx Cancer: No Hx MRSA: No - Vaccination History Hx Tetanus, Diphtheria Vaccination: Yes Hx Influenza Vaccination: Yes Hx Pneumococcal Vaccination: Yes - Social History Hx Tobacco Use: No Hx Alcohol Use: No Hx Substance Use: No Hx Substance Use Treatment: No Hx Depression: No Hx Physical Abuse: No Hx Emotional Abuse: No - Female History Patient : No Family Medical History - Family History Mother Family History: No Known Living Status: Still Living Hx Family Asthma: No Hx Family Congestive Heart Failure: No Hx Family Hypertension: No Hx Family Stroke: No Hx Cardiac Disease: No Hx Family Diabetes: No Hx Family Cancer: No Father Living Status: Cause of : Fell and hit head on a rock Physical Exam - Physical Exam General Appearance: Other - Patient is morbidly obese. He is unresponsive and being bagged. Eyes, Ears, Nose, Throat Exam: other - A Tristian tube is in place in patient's oropharynx Neck: other - Trachea is midline Respiratory: other - Patient is being bagged, he has no spontaneous respirations. Breath sounds are coarse bilaterally with bagging. Cardiovascular/Chest: normal peripheral pulses, regular rate, rhythm, no edema, no gallop, no JVD, no murmur, other - Patient with strong peripheral pulses Peripheral Pulses: radial,right: 2+, radial,left: 2+, femoral,right: 2+, femoral,left: 2+ Gastrointestinal/Abdominal: soft Extremity: no pedal edema Neurologic: other - Patient is completely unresponsive. He is GCS 3T. Skin Exam: pallor Progress - Progress Progress: 06/26/20 01:24 Patient arrived in the ED with return of spontaneous circulation in route via EMS. Patient's initial EMS rhythm was PEA, in the ED patient was in sinus tachycardia with a systolic pressure of 220. Patient bradycardia down shortly after arrival and CPR was briefly begun but patient again regained spontaneous circulation. Patient was intubated with a 7.5 ET tube without difficulty, there were no secretions in patient's oropharynx. A central line was immediately placed. Patient is presently stable with systolic in the 170s. There is concerned the patient may be in acute pulmonary edema and IV fluids have not been given pending x-ray and BNP results. 06/26/20 01:36 Updated history taken from who is now in the ED. History is recorded in the HPI. Wet read of patient's chest x-ray shows what appears to be diffuse CHF, IV Lasix given empirically. EKG: Sinus arrhythmia, rate 78, normal axis, normal QRS, lateral T wave inversions, normal ST segments, negative STEMI. 06/26/20 01:43 Patient is acidotic per his ABG, giving bicarb. 06/26/20 02:05 Patient's chemistry has resulted and patient is in DKA, he has new onset diabetes. IV insulin ordered per DKA protocol set. Patient's BNP is elevated at 723 concerning for CHF. 06/26/20 03:45 Patient is again considerably hypertensive with a systolic of 224, will give IV labetalol. 06/26/20 04:[address] Cat, emergency physician at [facility] in [place], [place] who accepts patient in ED to ED transfer. Patient is stable at this time and medically clear for transfer. Departure - Departure Clinical Impression: Cardiac arrest due to other underlying condition DKA (diabetic ketoacidoses) Qualifiers: Diabetes mellitus type: other specified (including PATRICK) Diabetes mellitus complication detail: with coma Qualified Code(s): E13.11 - Other specified diabetes mellitus with ketoacidosis with coma CHF (congestive heart failure) Qualifiers: Heart failure type: unspecified Heart failure chronicity: unspecified Qualified Code(s): I50.9 - Heart failure, unspecified Disposition: Discharge to Home or Self Care Referrals: Stefano Peters MD [Primary Care Provider] - 1-2 Weeks Home Medications: Ambulatory Orders Carvedilol 25 mg PO BID 12/25/17 Amlodipine Besylate 5 mg PO DAILY #20 tab 07/03/18 Apixaban [Eliquis] 5 mg PO BID 10/02/18 Hydrochlorothiazide 12.5 mg PO DAILY 10/02/18 Lisinopril [Prinivil] 20 mg PO BID 10/02/18 Acetaminophen W/ Codeine [Tylenol W/ CODEINE #3] 1 ea PO Q8H PRN #6 ea 04/06/20 Clindamycin HCl [Cleocin] 300 mg PO Q8H #30 capsule 04/06/20 Prednisone 20 mg PO DAILY #4 tab 04/06/20 Transfer to Outside Facility - Transfer Information Decision to Transfer Date: 06/26/20 Decision to Transfer Time: 02:08 Accepting Provider:: Dr. Calderon Accepting Facility: [facility]
[2020-06-26] MEDS ORDERED: PROPOFOL 50 ML IV ONE ×2 (01:28→06:37)
[2020-06-26] MEDS ORDERED: FUROSEMIDE INJ 40 MG/4 ML VIAL IV ONE (01:32)
[2020-06-26] MEDS ORDERED: SODIUM BICARBONATE VIAL 50 MEQ/50 ML VIAL IV ONE (01:41)
--- NOTE | 2020-06-26 01:53 | RAD ---
EXAM: XR Chest, 1 View CLINICAL HISTORY: The patient is 60 years old and is Male; SOB TECHNIQUE: Frontal view of the chest. COMPARISON: Chest radiograph May 05, 2018 FINDINGS: LUNGS: Mild diffuse interstitial prominence is noted. There is no lobar consolidation. PLEURAL SPACE: Unremarkable. No pneumothorax. HEART: The cardiac silhouette is enlarged. MEDIASTINUM: Unremarkable. BONES/JOINTS: There are degenerative changes of the spine. VASCULATURE: Prominence of central vasculature is present. TUBES, LINES AND DEVICES: The endotracheal tube is between the thoracic inlet and fawn. A right IJ central venous catheter is present with the tip in the region of the SVC. UPPER ABDOMEN: Gaseous distention of stomach is present. IMPRESSION: 1. Cardiomegaly with findings suggestive of edema. 2. Support structures in appropriate position. Electronically signed by: Teresa Leggett MD 06/26/2020 1:51 AM [facility]
[2020-06-26] MEDS ORDERED: SODIUM CHLORIDE 0.9% (FLUSH) 10 ML SYG IV PRN (02:02)
[2020-06-26] MEDS ORDERED: ENOXAPARIN SODIUM 100 MG/ML SYG SUBCU ONE (02:24)
[2020-06-26] MEDS ORDERED: INSULIN, REG.(HUMAN) 250 UNITS in SODIUM CHL 0.9% 250ML (AVIVA) 247.5 ML IVPB SCH ×2 (02:30)
[2020-06-26] MEDS ORDERED: IV SET AND CAP CHANGE INJ INJ SCH (02:30)
[2020-06-26] MEDS ORDERED: VECURONIUM BROMIDE 10 MG VIAL IV ONE ×3 (02:35→07:47)
[2020-06-26] MEDS ORDERED: PROPOFOL 200 MG/20 ML VIAL IV ONE (02:42)
[2020-06-26] MEDS ORDERED: WATER FOR INJ 10 ML VIAL INJ ONE (02:42)
--- NOTE | 2020-06-26 03:01 | CT ---
EXAM: CT Head Without Intravenous Contrast CLINICAL HISTORY: The patient is 60 years old and is Male; AMS TECHNIQUE: Axial computed tomography images of the head/brain without intravenous contrast. Sagittal and coronal reformatted images were created and reviewed. This CT exam was performed using one or more of the following dose reduction techniques: automated exposure control, adjustment of the mA and/or kV according to patient size, and/or use of iterative reconstruction technique. COMPARISON: No relevant prior studies available. FINDINGS: Limitations: Relation limited by artifact and recent contrast administration. Brain: Suggestion of diffuse loss iniguez-white matter differentiation: However, evaluation is severely limited by artifact. Recommend follow-up CT if there is concern for global anoxic injury. There may be a small remote right lacunar infarct. No hemorrhage. Ventricles: Unremarkable. No ventriculomegaly. Bones/joints: Unremarkable. No acute fracture. Soft tissues: Unremarkable. Vasculature: Scattered areas of hyperdensity which appear to be related to artifact and hyperdense appearing vasculature; however, recommend follow-up CT to exclude hemorrhage. Hyperdense appearing vasculature which can occur with recent contrast administration. Recommend follow-up CT for further evaluation. Sinuses: Right maxillary sinus retention cyst or polyp. Partial opacification of the paranasal sinuses. Mastoid air cells: Unremarkable as visualized. No mastoid effusion. IMPRESSION: 1. Suggestion of diffuse loss iniguez-white matter differentiation: however, evaluation is severely limited by artifact. Recommend follow-up CT if there is concern for global anoxic injury. 2. Scattered areas of hyperdensity which appear to be related to artifact and hyperdense appearing vasculature; however, recommend follow-up CT to exclude hemorrhage. 3. Hyperdense appearing vasculature which can occur with recent contrast administration. Recommend follow-up CT for further evaluation. Electronically signed by: Wilfrid De MD 06/26/2020 2:59 AM [facility]
--- NOTE | 2020-06-26 03:10 | CT ---
EXAM: CT Angiography Chest With Intravenous Contrast CLINICAL HISTORY: The patient is 60 years old and is Male; SOB TECHNIQUE: Axial computed tomographic angiography images of the chest with intravenous contrast. Sagittal and coronal reformatted images were created and reviewed. This CT exam was performed using one or more of the following dose reduction techniques: automated exposure control, adjustment of the mA and/or kV according to patient size, and/or use of iterative reconstruction technique. MIP reconstructed images were created and reviewed. COMPARISON: No relevant prior studies available. FINDINGS: Pulmonary arteries: Unremarkable. No pulmonary embolism. Aorta: No acute findings. No thoracic aortic aneurysm. Lungs: Diffuse groundglass changes in the lungs bilaterally. Bibasilar consolidation versus atelectasis. Pleural space: Unremarkable. No significant effusion. No pneumothorax. Heart: Left ventricular enlargement. No significant pericardial effusion. No evidence of RV dysfunction. Bones/joints: No acute fracture. No dislocation. Soft tissues: Unremarkable. Lymph nodes: Unremarkable. No enlarged lymph nodes. Tubes, lines and devices: Endotracheal tube in place above the fawn. Right internal jugular central venous catheter. IMPRESSION: 1. Diffuse groundglass changes in the lungs bilaterally. 2. Bibasilar consolidation versus atelectasis. 3. No evidence of pulmonary embolism. 4. Left ventricular enlargement. Electronically signed by: Wilfrid De MD 06/26/2020 3:08 AM [employer]
[2020-06-26] MEDS ORDERED: LABETALOL INJ 5 MG/ML VIAL IV ONE (03:44)
[2020-06-26 03:48] VITALS: TEMP 97.5
[2020-06-26] MEDS ORDERED: KCL 20MEQ/D5 1/2NS 1,000 ML IVS ONE ×2 (06:41→06:45)
[2020-06-26] MEDS ORDERED: MIDAZOLAM INJ 5 MG/5 ML VIAL ONE (07:25)
[2020-06-26] MEDS ORDERED: SODIUM CHLORIDE 0.9% 1000ML 500 ML IVS ONE (07:31)
[2020-06-26] MEDS ORDERED: SODIUM CHLORIDE 0.9% 500ML 500 ML ONE (07:34)
[2020-06-26] MEDS ORDERED: ENALAPRILAT INJ 1.25 MG/ML VIAL IV ONE (07:43)
[2020-06-26] MEDS ORDERED: HYDROmorphone HCL INJ 2 MG/ML VIAL IV ONE (07:44)
[2020-06-26] MEDS ORDERED: NITROGLYCERIN/D5W IV 250 ML IVS ONE (08:34)
[2020-06-26 19:16] VITALS: BP 172/63; O2SAT 98
== END 2020-06-26 09:45 | disposition home or self-care (01) ==
LOC: ER 00:44
DX: I46.9 Cardiac arrest, cause unspecified (principal); E13.11 Other specified diabetes mellitus with ketoacidosis with coma; I50.9 Heart failure, unspecified; I11.0 Hypertensive heart disease with heart failure; I25.2 Old myocardial infarction; E66.01 Morbid (severe) obesity due to excess calories; K21.9 Gastro-esophageal reflux disease without esophagitis; Z95.0 Presence of cardiac pacemaker; Z79.899 Other long term (current) drug therapy; Z79.01 Long term (current) use of anticoagulants; Z86.718 Personal history of other venous thrombosis and embolism; Z68.43 Body mass index [BMI] 50.0-59.9, adult
CPT/HCPCS: 31500; 36415; 36416; 36600; 70450; 71045; 71275; 80048; 80053; 80320; 80329; 81001; 82803; 82805; 82948; 83605; 83880; 84484; 85025; 85379; 85610; 87040; 87086; 87635; 92950; 93005; 94002; 94770; A4216; J0692; J1170; J1650; J1940; J2250; J3490; J7040; J7050